=== PATIENT | female | born 1960 | race Caucasian/White ===

== ENCOUNTER 2019-01-31 13:20 | Inpatient (IN) ==
[~2019-01-31 13:20] MED LIST: Total Joint Mixture (50 ml) IR ONE
[2019-01-31] MEDS ORDERED: Tranexamic Acid 1,000 MG/10 ML VIAL ONE (13:38)
[2019-01-31] MEDS ORDERED: Propofol 500 MG/50 ML INFUS..BTL ONE (13:38)
[2019-01-31] MEDS ORDERED: *HR* Propofol 200 MG/20 ML VIAL IVP ONE (13:39)
[2019-01-31] MEDS ORDERED: Lidocaine -MPF 2% 2 ML VIAL ONE (13:39)
[2019-01-31] MEDS ORDERED: *HR* Midazolam HCl 2 MG/2 ML VIAL ONE (13:40)
[2019-01-31] MEDS ORDERED: *HR* FentaNYL (PF) 100 MCG/2 ML VIAL ONE (13:40)
[2019-01-31] MEDS ORDERED: CeFAZolin Syr 2,000MG/20 ML 2,000 MG/20 ML SYRINGE IVPB ONE (14:04)
[2019-01-31] MEDS ORDERED: ROPIVACAINE/PF/NS 0.25% 1 EACH SYRINGE INTRAART ONE (14:07)
[2019-01-31] MEDS ORDERED: Acetaminophen IV 1,000 MG/100 ML INFUS..BTL IVPB ONE (14:13)
[2019-01-31] MEDS ORDERED: Pregabalin 75 MG CAPSULE PO ONE (14:13)
[2019-01-31] MEDS ORDERED: Famotidine 20 MG/2 ML VIAL IVP ONE (14:13)
[2019-01-31] MEDS ORDERED: Ringers Solution, Lactated 1,000 ML IVC SCH (14:15)
[2019-01-31] MEDS ORDERED: Ethanol\\Acetic Acid\\Na Ace\\Ben 1,000 ML IRRIG.SOLN IR ONE (14:44)
[2019-01-31] MEDS ORDERED: *HR* PHENYLEPHRINE 1,000 MCG/10 ML SYRINGE IVP ONE (15:33)
[2019-01-31] MEDS ORDERED: Ondansetron 4 MG/2 ML VIAL ONE (16:43)
[2019-01-31] MEDS ORDERED: Sennosides 8.6 MG TABLET PO PRN (18:02)
[2019-01-31] MEDS ORDERED: Ondansetron 4 MG/2 ML VIAL IVP PRN (18:02)
[2019-01-31] MEDS ORDERED: Naloxone 0.4 MG/ML INJ IVP PRN (18:02)
[2019-01-31] MEDS ORDERED: Temazepam 15 MG CAPSULE PO PRN (18:02)
[2019-01-31] MEDS ORDERED: MOM Conc 10 ML UD.LIQ PO PRN (18:02)
[2019-01-31] MEDS ORDERED: *HR* Promethazine 25 MG/ML VIAL IVP PRN (18:02)
[2019-01-31 18:48] LABS: Hematocrit 35.6 % (35.3-44.9); Hemoglobin 11.9 g/dL (11.5-15.4)
[2019-01-31] MEDS: Ringers Solution, Lactated 1,000 ML IVC SCH (18:59)
[2019-01-31] MEDS: Ascorbic Acid 500 MG TABLET PO SCH (19:02)
[2019-01-31] MEDS: *HR* OxyCODONE Immed Rel 5 MG TABLET PO PRN (20:13)
[2019-02-01 04:53] LABS: Basophils % 0.5 %; Eosinophils # 0.1 K/mcL (0.0-0.6); Eosinophils % 1.5 %; Hematocrit 31.1 % (35.3-44.9); Hemoglobin 10.2 g/dL (11.5-15.4); Immature Granulocytes % 0.2 % (0-4); Lymphocytes % 23.2 %; Mean Corpuscular HGB Conc 32.8 g/dL (31.6-35.5); Mean Corpuscular Hemoglobin 29.4 pg (28.0-33.3); Mean Corpuscular Volume 89.6 fL (83.0-100.0); Mean Platelet Volume 10.6 fL (9.4-12.4); Monocytes # 0.7 K/mcL (0.0-1.3); Monocytes % 8.5 %; Neutrophils # 5.7 K/mcL (1.6-8.9); Platelet Count 227 K/mcL (140-400); Red Blood Count 3.47 M/mcL (3.82-4.97); Red Cell Distribution Width 14.5 % (11.5-14.5); Segmented Neutrophils % 66.1 %; White Blood Count 8.6 K/mcL (4.3-11.1)
[2019-02-01 05:03] LABS: Calcium 8.4 mg/dL (8.6-10.3)
[2019-02-01] MEDS: *HR* OxyCODONE Immed Rel 5 MG TABLET PO PRN ×5 (05:17→23:01)
[2019-02-01] MEDS ORDERED: *HR* Enoxaparin 30 MG/0.3 ML SYRINGE SQ SCH (06:00)
[2019-02-01] MEDS: Ascorbic Acid 500 MG TABLET PO SCH ×2 (07:46→16:33)
[2019-02-01] MEDS: Multivit/Ca/Min/Fe/FA 1 TAB TABLET PO SCH (07:46)
[2019-02-01] MEDS: tiZANidine 4 MG TABLET PO PRN ×2 (07:47→13:41)
[2019-02-01] MEDS ORDERED: Ringers Solution, Lactated 1,000 ML IVC ONE (08:50)
[2019-02-01] MEDS: HYDROcodone BIT/Homatropine 5 MG TABLET PO PRN ×3 (12:22→20:45)
[2019-02-01] MEDS: Ringers Solution, Lactated 1,000 ML IVC SCH (13:34)
[2019-02-01] MEDS ORDERED: ALPRAZolam 0.5 MG TABLET PO ONE (13:54)
[2019-02-01] MEDS ORDERED: SUMAtriptan succinate 50 MG TABLET PO PRN (15:21)
[2019-02-01] MEDS ORDERED: tiZANidine 4 MG TABLET PO PRN (15:21)
[2019-02-01] MEDS ORDERED: hydrOXYzine pamoate 25 MG CAPSULE PO PRN (15:21)
[2019-02-01] MEDS: *HR* Rivaroxaban 10 MG TABLET PO SCH (16:33)
[2019-02-01] MEDS: rOPINIRole 1 MG TABLET PO SCH (20:44)
[2019-02-01] MEDS: Acyclovir 200 MG CAPSULE PO SCH (20:44)
[2019-02-01] MEDS: traZODone 50 MG TABLET PO SCH (20:44)
[2019-02-02] MEDS: HYDROcodone BIT/Homatropine 5 MG TABLET PO PRN ×3 (01:36→10:32)
[2019-02-02] MEDS: Ringers Solution, Lactated 1,000 ML IVC SCH (03:24)
[2019-02-02] MEDS: *HR* OxyCODONE Immed Rel 5 MG TABLET PO PRN ×4 (03:47→22:17)
[2019-02-02 06:43] LABS: Basophils % 0.2 %; Eosinophils % 0.1 %; Hematocrit 34.1 % (35.3-44.9); Hemoglobin 11.5 g/dL (11.5-15.4); Immature Granulocytes % 0.3 % (0-4); Lymphocytes # 1.1 K/mcL (0.6-4.6); Lymphocytes % 11.5 %; Mean Corpuscular HGB Conc 33.7 g/dL (31.6-35.5); Mean Corpuscular Hemoglobin 29.2 pg (28.0-33.3); Mean Corpuscular Volume 86.5 fL (83.0-100.0); Mean Platelet Volume 10.4 fL (9.4-12.4); Monocytes # 0.9 K/mcL (0.0-1.3); Neutrophils # 7.8 K/mcL (1.6-8.9); Platelet Count 238 K/mcL (140-400); Red Blood Count 3.94 M/mcL (3.82-4.97); Red Cell Distribution Width 13.8 % (11.5-14.5); Segmented Neutrophils % 78.9 %; White Blood Count 9.9 K/mcL (4.3-11.1)
[2019-02-02 07:06] LABS: BUN/Creatinine Ratio 16 (6-26); Blood Urea Nitrogen 12 mg/dL (8-23); Calcium 8.7 mg/dL (8.6-10.3); Carbon Dioxide 27 mEq/L (23-29); Chloride 101 mEq/L (98-107); Glucose 144 mg/dL (70-105); Osmolality,Calculated 286 (280-300); Potassium 3.9 mEq/L (3.5-5.1); Sodium 137 mEq/L (136-145); eGFR For African Americans > 60 (> 60); eGFR For Non-African Americans > 60 (> 60)
[2019-02-02] MEDS: Ascorbic Acid 500 MG TABLET PO SCH ×2 (08:04→15:52)
[2019-02-02] MEDS: Acyclovir 200 MG CAPSULE PO SCH ×2 (08:04→22:18)
[2019-02-02] MEDS: Multivit/Ca/Min/Fe/FA 1 TAB TABLET PO SCH (08:05)
[2019-02-02] MEDS: rOPINIRole 1 MG TABLET PO SCH ×2 (08:05→22:17)
[2019-02-02] MEDS ORDERED: ALPRAZolam 0.25 MG TABLET PO PRN (11:04)
[2019-02-02] MEDS: *HR* Rivaroxaban 10 MG TABLET PO SCH (17:12)
[2019-02-02] MEDS: traZODone 50 MG TABLET PO SCH (22:18)
[2019-02-03] MEDS: *HR* OxyCODONE Immed Rel 5 MG TABLET PO PRN ×2 (03:20→08:26)
[2019-02-03 05:03] LABS: Hematocrit 32.4 % (35.3-44.9); Hemoglobin 11.1 g/dL (11.5-15.4); Mean Corpuscular HGB Conc 34.3 g/dL (31.6-35.5); Mean Corpuscular Hemoglobin 29.5 pg (28.0-33.3); Mean Corpuscular Volume 86.2 fL (83.0-100.0); Platelet Count 243 K/mcL (140-400); Red Blood Count 3.76 M/mcL (3.82-4.97); Red Cell Distribution Width 14.2 % (11.5-14.5); White Blood Count 10.1 K/mcL (4.3-11.1)
[2019-02-03 05:24] LABS: BUN/Creatinine Ratio 19 (6-26); Blood Urea Nitrogen 14 mg/dL (8-23); Calcium 8.7 mg/dL (8.6-10.3); Carbon Dioxide 28 mEq/L (23-29); Chloride 102 mEq/L (98-107); Glucose 133 mg/dL (70-105); Osmolality,Calculated 290 (280-300); Sodium 139 mEq/L (136-145); eGFR For African Americans > 60 (> 60); eGFR For Non-African Americans > 60 (> 60)
[2019-02-03 06:41] VITALS: BP 149/83
[2019-02-03] MEDS: HYDROcodone BIT/Homatropine 5 MG TABLET PO PRN (06:51)
[2019-02-03] MEDS: Ascorbic Acid 500 MG TABLET PO SCH (08:24)
[2019-02-03] MEDS: rOPINIRole 1 MG TABLET PO SCH (08:25)
[2019-02-03] MEDS: Multivit/Ca/Min/Fe/FA 1 TAB TABLET PO SCH (08:25)
[2019-02-03] MEDS: Acyclovir 200 MG CAPSULE PO SCH (08:26)
== END 2019-02-03 11:40 | disposition home health service (06) | DRG 470 ==
LOC: SAMDAY 13:20 → 3NENU 18:58
PROVIDERS: ADMIT Orthopaedic Surgery; ATTEND Orthopaedic Surgery